=== PATIENT | male | born 2000 | race Caucasian/White ===

== ENCOUNTER 2020-06-10 11:47 | Inpatient (IN) | payer BC, SELFPAY ==
[2020-06-10] VITALS (14 sets, daily range): BP systolic 100–128; BP diastolic 56–82; PULSE 90–119; RESP 16–26; TEMP 36.4–38.5; O2SAT 89–95; BMI 46.7
--- NOTE | ~2020-06-10 | XR_ITS ---
XR chest 1V portable DATE: 06/10/2020 12:20 INDICATION: Shortness of breath, cough, low oxygen saturation. Covid-positive patient. TECHNIQUE: Portable upright AP chest on June 10, 2020 at 1215 hours COMPARISON: None FINDINGS: Normal heart size. No pleural effusion or pneumothorax. There are patchy bilateral pulmonary infiltrates which are more prominent centrally. Differential cesar gnosis includes bilateral pneumonia, less likely pulmonary edema. IMPRESSION: Patchy bilateral pulmonary infiltrates Reviewed, dictated and finalized at location A. [employer] MATERIALS COLLECTOR
--- NOTE | 2020-06-10 11:56 | ECG_ITS ---
Measurements Intervals [place] Rate: 105 P: 6 AK: 135 QRS: 68 QRSD: 110 T: -5 QT: 317 QTc: 419 Interpretive Statements SINUS TACHYCARDIA NONSPECIFIC T-WAVE ABNORMALITY- INFERIOR LEADS BASELINE ARTIFACT- I, III, AVR, AVL, AVF BORDERLINE ECG Electronically Signed On 06-10-2020 15:50:43 GIN POLE OPERATOR by Bill Puente D.O.
[2020-06-10 12:10] LABS: Basophils Percent Auto 0.3 % (0.2-1.2); Hematocrit 44.6 % (42.0-52.0); Hemoglobin 14.5 g/dL (14.0-18.0); Immature Granulocyte Absolute 0.02 K/mm3 (0.00-0.031); Immature Granulocyte Percent A 0.6 % (0-0.5); Lymphocytes Absolute Auto 1.05 K/mm3 (0.9-3.2); Lymphocytes Percent Auto 33.8 % (18.3-44.2); Mean Corpuscular HGB Conc 32.5 g/dl (32-36); Mean Corpuscular Hemoglobin 26.4 pg (26-34); Mean Corpuscular Volume 81.2 fl (80-100); Mean Platelet Volume 9.5 fl (7.4-10.4); Monocytes Absolute Auto 0.2 K/mm3 (0.1-0.6); Monocytes Percent Auto 5.5 % (2.6-8.5); Neutrophils Absolute Auto 1.9 K/mm3 (1.3-6.7); Neutrophils Percent Auto 59.8 % (45.5-73.1); Platelet Count Result 155 k/mm3 (150-375); Red Blood Count 5.49 M/mm3 (4.6-6.20); Red Cell Distribution Width 14.4 % (11.5-14.5); White Blood Count 3.1 K/mm3 (4.5-10.0)
--- NOTE | 2020-06-10 12:22 | ED.GENADULT ---
HPI - General Adult General Chief complaint: Upper Respiratory Infection Stated complaint: COVID blood oxygen level at 90 Time Seen by Provider: 06/10/20 11:58 History of Present Illness HPI narrative: Patient is a 19-year-old male who presents ER with increased shortness of breath and low oxygen saturation. Reports his pulse oximeter was reading 90% at home and his PCP referred him to the ER. Patient began feeling sick with Covid 1 week ago and tested positive a day later. His mother and father also Covid positive. He reports she is having cough with shortness of breath as well as body aches and fevers and chills. Highest fever was 103.8 ?F yesterday. He has not been taking any medications to help with the shortness of breath. Shortness of breath is worsened with movement. No real alleviating factors. Related Data Home Medications Medication Instructions Recorded Confirmed No Home Medications 06/10/20 06/10/20 Allergies Allergy/AdvReac Type Severity Reaction Status Date / Time No Known Allergies Allergy Verified 06/10/20 11:53 Review of Systems Review of Systems: All systems reviewed & are unremarkable except as noted in HPI and below Constitutional: Constitutional: Reports chills, Reports fatigue and Reports fever(s) ENT: Reports nasal congestion and Denies sore throat Cardiovascular: Cardiovascular: Denies chest pain, Denies rapid heart rate and Denies radiating jaw, neck or arm pain Respiratory: Respiratory: Reports chest congestion, Reports cough, Reports dyspnea and Denies wheezing Gastrointestinal: Gastrointestinal: Denies abdominal pain, Denies nausea and Denies vomiting PMFSH Past Medical History Medical History (Updated 06/10/20 @ 19:53 by Santi Deleon MD) Chronic low back pain with right-sided sciatica Conjunctivitis COVID-19 (06/03/20) Encounter for wellness examination in adult Essential (primary) hypertension History of frequent headaches Irritable bowel syndrome with both constipation and diarrhea Migraine without aura and without status migrainosus, not intractable Mixed hyperlipidemia Morbid obesity with BMI of 40.0-44.9, adult Tension headache, chronic Tobacco abuse Surgical History Surgical History Hx of tonsillectomy (~2006) Family History Family History (Updated 06/10/20 @ 15:09 by Abiola Ledesma NP) Mother Cancer Arthritis Migraines Hypertension Father Arthritis Hypertension Grandparent Arthritis Grandparent Cancer Grandparent Arthritis Grandparent Cancer Sibling Asthma Social History Social History (Updated 06/10/20 @ 15:12 by Abiola Ledesma NP) Social History: The patient has 1 child a son that is about a year and half old. The patient lives with his parents. 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 Patient face and does not know how much nicotine that he uses every day. He does not use any alcohol, marijuana, or illicit drugs. He stated that his parents would be the durable power finance attorney for healthcare. He is a full code. Smoking status: Current every day smoker Tobacco type: e-cigarettes/vaping Alcohol intake: never Substance use: never Gender identity (if verbalized by the patient): Male Spiritual care concerns: No Exam Narrative: Exam Narrative: GENERAL: Well-appearing, morbidly obese, and in no acute distress. HEAD: Normocephalic, atraumatic. CHEST: Clear to auscultation. No respiratory distress. Frequent coughing. HEART: Tachycardic and regular. Normal peripheral pulses. ABDOMEN: Soft, nontender, nondistended. EXTREMITIES: Normal range of motion. No edema. SKIN: Warm, dry, no rash. NEURO: Alert and oriented x3. PSYCH: Normal mood and affect. Course Vital Signs Vital signs: Vital Signs Temperature 97.6 F 06/10/20 11:50 Pulse Rate 119 H 06/10/20 11:50 Respiratory Rate 20 06/10/20 11:50 Blood Pressure 109/77
[2020-06-10] MEDS: DEXAMETHASONE SOD PHOS INJ 4 MG/ML VIAL 6 MG IV PUSH (12:24)
[2020-06-10 12:34] LABS: Anion Gap 8 mmol/L (8-16); Blood Urea Nitrogen 10 mg/dL (9-20); Calcium 8.6 mg/dL (8.4-10.2); Carbon Dioxide 28 mmol/L (22-30); Chloride 102 mmol/L (98-107); Estimated CRCL calculation 171 ml/min; Estimated Glomerular Filt Rate > 60; Glucose 132 mg/dL (75-110); Potassium 3.8 mmol/L (3.4-5.0); Sodium 138 mmol/L (137-145)
[2020-06-10 12:38] LABS: D Dimer 0.63 ug/mL (<0.48)
[2020-06-10 12:42] LABS: CRP 1.8 mg/dL (<1.0)
[2020-06-10 13:52] LABS: Alanine Aminotransferase 73 U/L (4-50); Estimated CRCL calculation 155 ml/min; Estimated Glomerular Filt Rate > 60
[2020-06-10 13:54] LABS: Alanine Aminotransferase 74 U/L (4-50); Alkaline Phosphatase 21 U/L (38-126); Aspartate Amino Transferase 100 U/L (17-59); Bilirubin,Total 0.8 mg/dL (0.2-1.3)
--- NOTE | 2020-06-10 14:49 | PM.IMHP ---
H&P: HPI History of Present Illness Date/Time: 06/10/20 14:49 Chief Complaint: Shortness of breath Narrative: Seng Cruz is a 19 year old male Who started feeling ill approximately 7 days ago. The patient stated that he got a COVID test last Friday that was positive. His mother tested positive that Friday. Both his mother and father both are positive for COVID-19. The patient has been short of breath but has gotten worse over the last couple days. The patient has been monitoring his pulse ox at home and it was noted to be in the upper 80s lower 90s. The patient has been coughing. He had a T-max of 103.8?. chest x-ray was read as patchy bilateral pulmonary infiltrates. Blood pressure 128/82. Patient's oxygen level dropped down 89% and 2 L was placed per nasal cannula. White count was noted to be 3.1. D-dimer 0.63. The patient stated he does not have any chest pain but he feels some tightness in his chest when he takes a deep breath. AST was 100. Lifelong phosphatase 21. C reactive protein 1.8. The patient has no previous medical history except for obesity. Patient is being admitted to inpatient status on the date of service of 06/10/2020. Review of Systems Review of Systems: All systems reviewed & are unremarkable except as noted in HPI and below Constitutional: Constitutional: Reports as per HPI and Reports no additional constitutional complaints Eyes: Eyes: Reports as per HPI and Reports no additional eye complaints ENT: Reports system reviewed and no additional complaints, except as documented and Reports Normal hearing present Cardiovascular: Cardiovascular: Reports no additional cardiovascular complaints Respiratory: Respiratory: Reports no additional respiratory complaints and Reports no additional respiratory complaints Gastrointestinal: Gastrointestinal: Reports as per HPI and Reports no additional gastrointestinal complaints Musculoskeletal: Musculoskeletal: Reports no additional musculoskeletal complaints Integumentary/Breasts: Skin/Breast: Reports system reviewed and no additional complaints, except as docu and Reports as per HPI Neurologic: Reports system reviewed and no additional complaints, except as documented, Reports as per HPI and Reports Normal hearing present Psychiatric: Psychiatric: Reports no additional psychiatric complaints and Reports as per HPI Endocrine: Endocrine: Reports no additional endocrine complaints Hematologic/Lymphatic: Hematologic/Lymphatic: Reports no additional hematologic/lymphatic complaints Allergic/Immunologic: Allergic/Immunologic: Reports no additional allergic/immunologic complaints [facility] Past Medical History Medical History Chronic low back pain with right-sided sciatica Conjunctivitis COVID-19 (06/03/20) Encounter for wellness examination in adult Essential (primary) hypertension History of frequent headaches Irritable bowel syndrome with both constipation and diarrhea Migraine without aura and without status migrainosus, not intractable Mixed hyperlipidemia Morbid obesity with BMI of 40.0-44.9, adult Tension headache, chronic Surgical History Surgical History Hx of tonsillectomy (~2006) Family History Family History (Updated 06/10/20 @ 15:09 by Abiola Ledesma NP) Mother Cancer Arthritis Migraines Hypertension Father Arthritis Hypertension Grandparent Arthritis Grandparent Cancer Grandparent Arthritis Grandparent Cancer Sibling Asthma Social History Social History (Updated 06/10/20 @ 15:12 by Abiola Ledesma NP) Social History: The patient has 1 child a son that is about a year and half old. The patient lives with his parents. 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 Patient face and does not know how much nicotine that he uses every day. He does not use any alcohol, marijuana, or illicit drug
[2020-06-10] MEDS: ACETAMINOPHEN 325 MG TABLET 650 MG PO ×2 (14:57→20:48)
--- NOTE | 2020-06-10 15:02 | PC.NURSE ---
This patient, Seng Cruz, was admitted to [facility] Surg Room 311-01. Patient/family oriented to hospital policies and general routines including ID bracelet, bed and alarms, visiting hours, pain management, procedures, bathroom and other care routines, personal items, smoking policy, room service/diet, and visiting hours. Information on how to activate the Rapid Response Team has been discussed. Patient/Family are encouraged to report perceived risks to care and to ask questions if they do not understand what they are told or what they should do.
[2020-06-10] MEDS: REMDESIVIR 200 MG/NS 250 ML 200 MG/250 ML BAG 250 MG IVPB (15:15)
[2020-06-10 15:16] LABS: Alanine Aminotransferase 77 U/L (4-50); Estimated CRCL calculation 171 ml/min; Estimated Glomerular Filt Rate > 60
[2020-06-10] MEDS: ALBUTEROL SULFATE (*SP) INHALER 1 PUFF (19:59)
[2020-06-10] MEDS: ALBUTEROL SULFATE (*SP) AEROSOL 1 PUFF 4 PUFF INHALATION (20:48)
[2020-06-10] MEDS: guaiFENesin/DEXTROMETHORPHAN 10 ML UDC PO (20:52)
[2020-06-11] VITALS (8 sets, daily range): BP systolic 100–143; BP diastolic 50–91; PULSE 79–126; RESP 20–24; TEMP 36.1–38.6; O2SAT 90–96
[2020-06-11 08:37] LABS: Basophils Percent Auto 0.2 % (0.2-1.2); Hematocrit 46.4 % (42.0-52.0); Hemoglobin 15.1 g/dL (14.0-18.0); Immature Granulocyte Absolute 0.02 K/mm3 (0.00-0.031); Immature Granulocyte Percent A 0.4 % (0-0.5); Lymphocytes Absolute Auto 0.97 K/mm3 (0.9-3.2); Lymphocytes Percent Auto 18.6 % (18.3-44.2); Mean Corpuscular HGB Conc 32.5 g/dl (32-36); Mean Corpuscular Hemoglobin 26.6 pg (26-34); Mean Corpuscular Volume 81.7 fl (80-100); Mean Platelet Volume 9.8 fl (7.4-10.4); Monocytes Absolute Auto 0.2 K/mm3 (0.1-0.6); Monocytes Percent Auto 4.4 % (2.6-8.5); Neutrophils Percent Auto 76.4 % (45.5-73.1); Platelet Count Result 165 k/mm3 (150-375); Red Blood Count 5.68 M/mm3 (4.6-6.20); Red Cell Distribution Width 14.7 % (11.5-14.5); White Blood Count 5.2 K/mm3 (4.5-10.0)
[2020-06-11 08:53] LABS: Alanine Aminotransferase 64 U/L (4-50); Alkaline Phosphatase 40 U/L (38-126); Anion Gap 8 mmol/L (8-16); Aspartate Amino Transferase 70 U/L (17-59); Bilirubin,Total 0.5 mg/dL (0.2-1.3); Blood Urea Nitrogen 11 mg/dL (9-20); CRP 1.6 mg/dL (<1.0); Calcium 8.8 mg/dL (8.4-10.2); Carbon Dioxide 31 mmol/L (22-30); Chloride 99 mmol/L (98-107); Estimated CRCL calculation 171 ml/min; Estimated Glomerular Filt Rate > 60; Glucose 114 mg/dL (75-110); Magnesium 1.9 mg/dL (1.6-2.3); Potassium 4.4 mmol/L (3.4-5.0); Sodium 138 mmol/L (137-145)
[2020-06-11] MEDS: guaiFENesin/DEXTROMETHORPHAN 10 ML UDC PO (10:20)
[2020-06-11] MEDS: DEXAMETHASONE SOD PHOS INJ 4 MG/ML VIAL 6 MG IV PUSH (10:20)
[2020-06-11] MEDS: ENOXAPARIN 40 MG/0.4 ML SYRINGE SUB-Q (10:21)
[2020-06-11] MEDS: CHOLECALCIFEROL 1,000 UNITS TABLET 1000 UNITS PO (10:21)
[2020-06-11] MEDS: ZINC SULFATE 220 MG CAPSULE PO (10:22)
[2020-06-11] MEDS: REMDESIVIR 100 MG/NS 250 ML 100 MG/250 ML BAG 250 MG IVPB (10:22)
[2020-06-11] MEDS: ASCORBIC ACID 500 MG TABLET PO (10:22)
[2020-06-11] MEDS: ALBUTEROL SULFATE (*SP) AEROSOL 1 PUFF 4 PUFF INHALATION ×3 (10:22→16:53)
[2020-06-11] MEDS: ACETAMINOPHEN 325 MG TABLET 650 MG PO (11:53)
--- NOTE | 2020-06-11 14:41 | PM.IMPN ---
Progress Note: A&P Assessment and Plan (1) COVID-19: Onset Date: 06/03/20 Code(s): U07.1 - COVID-19 Status: Acute Assessment and Plan: Decadron and REMdesivir. Continue to monitor liver enzymes. Albuterol inhaler. Incentive spirometer. Michaelsin. 06/11/20 14:41 patient is a 19-year-old male morbidly obese was positive COVID-19 7 days ago, complaint of cough shortness of breath and fever, both of his parents are positive for the COVID-19, chest x-ray shows patchy bilateral pulmonary infiltrate most likely patient has a secondary bacterial pneumonia, COVID-19 patient is being treated with dexamethasone 2/10, Remdesivir 2/5, vitamin-D vitamin-C and zinc, I discussed with patient to receive convalescent plasma and he refused, secondary bacterial pneumonia patient is being treated with doxycycline, patient is requiring 4 L of oxygen and fever of 101.4, will continue to monitor and further recommendation to follow. (2) Morbid obesity with BMI of 40.0-44.9, adult: Code(s): E66.01 - Morbid (severe) obesity due to excess calories; Z68.41 - Body mass index [BMI]40.0-44.9, adult Status: Acute Assessment and Plan: Patient was placed on heart healthy diet. (3) Tobacco abuse: Code(s): Z72.0 - Tobacco use Status: Chronic Assessment and Plan: We discussed smoking cessation. The patient date but has not been vaping since he has been sick. Subjective Date/time seen: 06/11/20 14:41 patient is a 19-year-old male morbidly obese was positive COVID-19 7 days ago, complaint of cough shortness of breath and fever, both of his parents are positive for the COVID-19, chest x-ray shows patchy bilateral pulmonary infiltrate most likely patient has a secondary bacterial pneumonia, COVID-19 patient is being treated with dexamethasone 2/10, Remdesivir 2/5, vitamin-D vitamin-C and zinc, I discussed with patient to receive convalescent plasma and he refused, secondary bacterial pneumonia patient is being treated with doxycycline, patient is requiring 4 L of oxygen and fever of 101.4, will continue to monitor and further recommendation to follow. Review of Systems Review of Systems: All systems reviewed & are unremarkable except as noted in HPI and below Exam Narrative: Exam Narrative: Morbidly obese Patient is comfortable, NAD HEENT: eyes are clear and none icteric LUNGS: Normal respiratory effort ABD: Obese and distended Lower extremities: no edema SKIN: nonjaundiced Neuro: grossly intact normal speech. Objective Data Vital Signs Vital Signs: Vital Signs - 24 hr 06/10/20 14:57 06/10/20 15:30 06/10/20 16:00 Temperature 101.3 F H 100.2 F H Pulse Rate 97 94 Respiratory Rate 16 16 Blood Pressure 115/59 L Pulse Oximetry 93 91 06/10/20 20:00 06/10/20 20:01 06/10/20 20:48 Temperature 99.9 F H 99.9 F H Pulse Rate 101 H 90 Respiratory Rate 20 20 Blood Pressure 125/77 Pulse Oximetry 95 06/10/20 21:48 06/10/20 22:30 06/11/20 00:00 Temperature 100.5 F H 100.5 F H 99.8 F H Pulse Rate 94 Respiratory Rate 20 Blood Pressure 100/50 L Pulse Oximetry 94 06/11/20 04:00 06/11/20 08:00 06/11/20 11:53 Temperature 98.7 F 99.1 F 101.4 F H Pulse Rate 79 104 H Respiratory Rate 20 20 Blood Pressure 107/54 L 123/61 Pulse Oximetry 91 93 06/11/20 11:56 06/11/20 12:00 Temperature 101.4 F H Pulse Rate 109 H 126 H Respiratory Rate 21 H 24 H Blood Pressure 106/58 L Pulse Oximetry 90 91 Intake/Output Intake/Output: Intake & Output 06/08/20 06/09/20 06/10/20 06/11/20 23:59 23:59 23:59 23:59 Intake Total 780 540 Output Total 350 Balance 780 190 Meds/Results Medications: Active Medications Generic Name Dose Route Start Last Admin Trade Name Freq PRN Reason Stop Dose Admin Acetaminophen 650 mg 06/10/20 13:13 06/11/20 11:53 Acetaminophen 325 Mg Tablet PO 650 mg Q4H PRN Administration Mild Pain (1-3) or Fever
--- NOTE | 2020-06-12 07:46 | PM.DS ---
DS: Admitting Diagnosis Admitting Diagnosis Admitting Diagnosis: Chief Complaint: Shortness of breath DS: Discharge Diagnosis Discharge Diagnosis (1) COVID-19: Onset Date: 06/03/20 Code(s): U07.1 - COVID-19 Status: Acute Assessment and Plan: Decadron and REMdesivir. Continue to monitor liver enzymes. Albuterol inhaler. Incentive spirometer. Dany. 06/11/20 14:41 patient is a 19-year-old male morbidly obese was positive COVID-19 7 days ago, complaint of cough shortness of breath and fever, both of his parents are positive for the COVID-19, chest x-ray shows patchy bilateral pulmonary infiltrate most likely patient has a secondary bacterial pneumonia, COVID-19 patient is being treated with dexamethasone 2/10, Remdesivir 2/5, vitamin-D vitamin-C and zinc, I discussed with patient to receive convalescent plasma and he refused, secondary bacterial pneumonia patient is being treated with doxycycline, patient is requiring 4 L of oxygen and fever of 101.4, will continue to monitor and further recommendation to follow. (2) Morbid obesity with BMI of 40.0-44.9, adult: Code(s): E66.01 - Morbid (severe) obesity due to excess calories; Z68.41 - Body mass index [BMI]40.0-44.9, adult Status: Acute Assessment and Plan: Patient was placed on heart healthy diet. (3) Tobacco abuse: Code(s): Z72.0 - Tobacco use Status: Chronic Assessment and Plan: We discussed smoking cessation. The patient date but has not been vaping since he has been sick. DS: Summary Hospital Course Reason for hospitalization: Chief Complaint: Shortness of breath Narrative: Seng Cruz is a 19 year old male Who started feeling ill approximately 7 days ago. The patient stated that he got a COVID test last Friday that was positive. His mother tested positive that Friday. Both his mother and father both are positive for COVID-19. The patient has been short of breath but has gotten worse over the last couple days. The patient has been monitoring his pulse ox at home and it was noted to be in the upper 80s lower 90s. The patient has been coughing. He had a T-max of 103.8?. chest x-ray was read as patchy bilateral pulmonary infiltrates. Blood pressure 128/82. Patient's oxygen level dropped down 89% and 2 L was placed per nasal cannula. White count was noted to be 3.1. D-dimer 0.63. The patient stated he does not have any chest pain but he feels some tightness in his chest when he takes a deep breath. AST was 100. Lifelong phosphatase 21. C reactive protein 1.8. The patient has no previous medical history except for obesity. Patient is being admitted to inpatient status on the date of service of 06/10/2020. Hospital Course: 06/11/20 14:41 patient is a 19-year-old male morbidly obese was positive COVID-19 7 days ago, complaint of cough shortness of breath and fever, both of his parents are positive for the COVID-19, chest x-ray shows patchy bilateral pulmonary infiltrate most likely patient has a secondary bacterial pneumonia, COVID-19 patient is being treated with dexamethasone 2/10, Remdesivir 2/5, vitamin-D vitamin-C and zinc, I discussed with patient to receive convalescent plasma and he refused, secondary bacterial pneumonia patient is being treated with doxycycline, patient is requiring 4 L of oxygen and fever of 101.4, will continue to monitor and further recommendation to follow. Patient left AMA Time Spent with Patient Time attestation: Total time spent providing and/or coordinating discharge services: patient left AMA Exam Narrative: Exam Narrative: patient left AMA DS: Data Data Completed and Pending Labs on day of discharge: Labs from last 24 hours 06/11/20 06/11/20 06/11/20 08:26 08:26 08:26 WBC 5.2 RBC 5.68 Hgb 15.1 Hct 46.4 MCV 81.7 MCH 26.6 MCHC 32.5 RDW 14.7 H Plt Count 165 MPV 9.8 Immature Gran % (Auto) 0.4 Neut % (Auto)
== END 2020-06-11 18:45 | disposition left against medical advice (07) | DRG 177 ==
LOC: ANHED 13:23 → ANH3MEDSUR 15:10
PROVIDERS: Emergency Medicine; Nurse Practitioner; Admitting Provider Family Medicine; Emergency Provider Emergency Medicine; PCP Family Medicine; Visit Provider Family Medicine
DX: U07.1 COVID-19 (principal); J12.82 Pneumonia due to coronavirus disease 2019; Z68.42 Body mass index [BMI] 45.0-49.9, adult; E66.01 Morbid (severe) obesity due to excess calories; Z72.0 Tobacco use
CPT/HCPCS: 36415; 71045; 80048; 80053; 80076; 82565; 83735; 84443; 84460; 85025; 85380; 86140; 93005; 94640; 96374; 99285; A9270; J1100; J1650